=== PATIENT | female | born 1985 | race Caucasian/White ===

== ENCOUNTER → 2024-10-20 13:46 | Outpatient (REF) | payer OTHER, SELFPAY | LOC: PNTC 13:46 | PROVIDERS: ATTENDING PHYSICIAN Advanced Practice Midwife | DX: Z36.0 Encounter for antenatal screening for chromosomal anomalies (principal); O09.522 Supervision of elderly multigravida, second trimester; Z34.92 Encounter for supervision of normal pregnancy, unspecified, second trimester | CPT/HCPCS: 76811 ==

== ENCOUNTER → 2025-03-10 08:35 | Outpatient (REF) | payer OTHER, SELFPAY | LOC: WDC 08:35 | PROVIDERS: ATTENDING PHYSICIAN Registered Nurse Women's Health Care, Ambulatory | DX: N63.20 Unspecified lump in the left breast, unspecified quadrant (principal); N63.24 Unspecified lump in the left breast, lower inner quadrant | CPT/HCPCS: 76642 ==